=== PATIENT | female | born 1950 | race Caucasian/White ===

== ENCOUNTER 2017-12-11 17:44 | Emergency (ER) | payer MEDICARE, OTHER ==
[~2017-12-11] VITALS: Ht 160 cm; Wt 147.7 kg
[~2017-12-11 17:44] MED LIST: CITA-278 PO; DIPH-186 PO; GABA600T PO; HYDR1TAB PO; IMO2C PO; LISI30TA39 PO; MORP30TA60 PO; PROM25TA14 PO; RANI-327 PO
[2017-12-11 18:24] VITALS: BP 160/100
== END 2017-12-11 21:53 | disposition home or self-care (01) ==
LOC: ER 17:46
DX: K14.8 Other diseases of tongue (principal); R06.02 Shortness of breath; Z88.1 Allergy status to other antibiotic agents; Z88.8 Allergy status to other drugs, medicaments and biological substances; Z79.899 Other long term (current) drug therapy
CPT/HCPCS: 99284

== ENCOUNTER 2021-11-20 08:03 | Day surgery (SDC) | payer MEDICARE, SELFPAY ==
[2021-11-15 15:35] LABS: BASOPHILS # (AUTO) 0.1 X10'3 (0-0.2); BASOPHILS % (AUTO) 1.1 % (0-1); EOSINOPHILS # (AUTO) 0.1 X10'3 (0-0.9); EOSINOPHILS % (AUTO) 1.3 % (0-6); LYMPHOCYTES % (AUTO) 31.2 % (21-51); MEAN CORPUSCULAR HGB CONC 32.4 g/dL (33.0-36.5); MEAN CORPUSCULAR VOLUME 83.4 FL (78-98); MEAN PLATELET VOLUME 7.1 FL (7.4-10.4); MONOCYTES # (AUTO) 0.6 X10'3 (0-0.9); MONOCYTES % (AUTO) 9.8 % (2-12); NEUTROPHILS # (AUTO) 3.7 X10'3 (1.8-7.7); NEUTROPHILS % (AUTO) 56.6 % (42-75); PRE OP HEMATOCRIT 37.7 % (35.0-45.0); PRE OP HEMOGLOBIN 12.2 g/dL (12.0-16.0); PRE OP PLATELET COUNT 288 X10'3 (140-440); RED BLOOD COUNT 4.52 X10'6 (4.20-5.60); RED CELL DISTRIBUTION WIDTH 15.5 % (11.5-14.5)
[2021-11-15 15:39] LABS: PRE OP PROTIME 10.1 SECONDS (9.0-12.0)
[2021-11-15 16:08] LABS: ALBUMIN 3.4 G/DL (3.4-5.0); ALBUMIN/GLOBULIN RATIO 0.9 (1.1-1.5); ALKALINE PHOSPHATASE 128 IU/L (46-116); BLOOD UREA NITROGEN 25 MG/DL (7-18); BUN/CREATININE RATIO 24.8 (6.6-38.0); CALCIUM 8.9 MG/DL (8.5-10.1); CHLORIDE 102 MMOL/L (99-107); CREATININE 1.01 MG/DL (0.40-0.90); PRE OP ALT 21 U/L (30-65); PRE OP ANION GAP 10 (8-16); PRE OP AST 11 U/L (10-37); PRE OP BILIRUB, TOTAL 0.4 MG/DL (0.0-1.0); PRE OP GLUCOSE 119 MG/DL (70-104); PRE OP POTASSIUM 4.7 MMOL/L (3.4-5.1); PRE OP SODIUM 140 MMOL/L (135-145); TOTAL CARBON DIOXIDE 27.6 MMOL/L (24-32); TOTAL PROTEIN 7.1 G/DL (6.4-8.2); eGFR 54 ML/MIN
[~2021-11-20] VITALS: Ht 162.6 cm; Wt 147.4 kg
[2021-11-20] VITALS (14 sets, daily range): BP systolic 120–172; BP diastolic 53–150
[~2021-11-20 08:03] MED LIST changes: +ACET-1025 PO; +ATOR20TA66 PO; -CITA-278 PO; +CITA20TA28 PO; +CYCL-394 PO; -DIPH-186 PO; +DIPH25CA83 PO; +DULO60CA65 PO; +FLUT16SP20 NAS; -GABA600T PO; +GUAI400T68 PO; +HYDR-4353 PO; +HYDR12.55 PO; -HYDR1TAB PO; +HYDR50TA65 PO; -IMO2C PO; +INDO50CA96 PO; +LIDOcaine 1% W/epiNEPHrine 1:100,000 20ml vial ONE; -LISI30TA39 PO; +LISI40TA13 PO; -MORP30TA60 PO; +OXYB5TAB16 PO; +PANT40TA54 PO; -PROM25TA14 PO; -RANI-327 PO; +cocaine 4% topical solution 4ml bottle ONE; +diazepam 5mg tablet PO ONE; +famotidine 20mg tablet PO ONE; +oxymetazoline 15 ML nasal spray NS ONE; +ringers solution, lacted 1,000 ML IV SCH
[2021-11-20] MEDS: oxymetazoline 15 ML nasal spray NS PRN ×2 (09:49→09:53)
[2021-11-20] MEDS ORDERED: LIDOcaine 2% 5ml jelly ONE (10:54)
[2021-11-20] MEDS ORDERED: sevoflurane 250ml liquid IH ONE (10:58)
[2021-11-20] MEDS ORDERED: acetaminophen 1,000mg/100ml IV 100 ML IV PRN (11:00)
[2021-11-20] MEDS ORDERED: hydrALAZINE 20mg/ml inj. IV PRN (11:00)
[2021-11-20] MEDS ORDERED: meperidine/PF 25mg/ml syringe IV PRN (11:00)
[2021-11-20] MEDS ORDERED: proCHLORperazine 10 MG/2 ml inj IV PRN (11:00)
[2021-11-20] MEDS ORDERED: labetalol 20mg/4ml (5mg/ml) syringe IV PRN (11:00)
[2021-11-20] MEDS ORDERED: morphine 4 MG/ML inj SYRINge IV PRN (11:00)
[2021-11-20] MEDS ORDERED: HYDROmorphone/PF 0.2 MG/ML SYRINGE IV PRN ×2 (11:00)
[2021-11-20] MEDS ORDERED: ringers solution, lacted 1,000 ML IV SCH (11:00)
[2021-11-20] MEDS ORDERED: morphine 2 MG/ML inj. syringe IV PRN (11:00)
[2021-11-20] MEDS ORDERED: ondansetron/PF 4mg/2ml inj IV PRN (11:00)
[2021-11-20] MEDS ORDERED: fentaNYL/PF 50MCG/1 ML 2ML syringe ONE (11:06)
[2021-11-20] MEDS ORDERED: propofol inj 20 ML IV ONE (11:26)
[2021-11-20] MEDS ORDERED: LIDOcaine 1%/PF 5ML 10 MG/ML VIAL ONE ×2 (11:26)
[2021-11-20] MEDS ORDERED: midazolam 1 mg/ML 2ml injection ONE (11:26)
[2021-11-20] MEDS ORDERED: ondansetron/PF 4mg/2ml inj ONE (11:26)
[2021-11-20] MEDS ORDERED: dexamethasone sod phosphate 4mg/ml inj. ONE (11:26)
[2021-11-20] MEDS ORDERED: ePHEDrine 50MG/ML INJ. ONE (11:30)
--- NOTE | 2021-11-20 12:05 | NUR ---
PT ARRIVED TO [facility]IA [facility], ACCOMPANIED BY DR ADKINS-ANESTHESIA REPORT GIVEN, PT WAKING UP,VSS, DENIES PAIN, SCDS ON, NO COTTONOIDS PRESENT, PIV 20G-RIGHT HAND.
[2021-11-20] MEDS ORDERED: salt irrigation nasal spray 45 ML SPRAY NS PRN (12:25)
[2021-11-20] MEDS: mupirocin 2% ointment 22GM ONE ×2 (12:55→12:56)
[2021-11-20] MEDS ORDERED: HYDROcodone/acetaminophen 5mg/325mg tablet PO ONE (13:00)
--- NOTE | 2021-11-20 14:20 | NUR ---
PT UP AND DRESSED, SITTING IN CHAIR, VSS, PAIN CONTROLLED AFTER MORPHINE AND NORCO GIVEN, BLEEDING MINIMAL, EXPLAINED AND DEMONSTRATED HOME CARE, GIVEN ALL NEEDED SUPPLIES FOR HOME, PT HAS FRESH MUSTACHE DRESSING, PIV D/CD-CANULA INTACT, D/C INSTRUCTIONS GIVEN, PT TAKEN WITH ALL BELONGINGS VIA W/C TO VEHICLE FOR TRANSPORT HOME.
== END 2021-11-20 14:20 | disposition home or self-care (01) ==
LOC: PAS 08:03
PROVIDERS: ATTEND Otolaryngology
DX: J32.8 Other chronic sinusitis (principal); J33.8 Other polyp of sinus; I10 Essential (primary) hypertension; K21.9 Gastro-esophageal reflux disease without esophagitis; F41.9 Anxiety disorder, unspecified; F32.A Depression, unspecified; M19.90 Unspecified osteoarthritis, unspecified site; G89.29 Other chronic pain; E66.9 Obesity, unspecified; Z86.718 Personal history of other venous thrombosis and embolism; Z20.822 Contact with and (suspected) exposure to COVID-19; Z79.899 Other long term (current) drug therapy; Z79.01 Long term (current) use of anticoagulants; Z98.890 Other specified postprocedural states; Z88.1 Allergy status to other antibiotic agents; Z88.0 Allergy status to penicillin; Z88.2 Allergy status to sulfonamides; Z88.8 Allergy status to other drugs, medicaments and biological substances; Z72.89 Other problems related to lifestyle
CPT/HCPCS: 31254; 31256; 36415; 61782; 80053; 82948; 85025; 85576; 85610; 85730; 87635; 93005; A6402; C9250; C9803; J1100; J2250; J2270; J2405; J2704; J3010; J3490; J7030; J7040; J7120; Z7506; Z7508; Z7512; 88304; 88311; A4618; A6449; A7000

== ENCOUNTER 2024-07-26 09:56 | Emergency (ER) | payer MEDICARE, SELFPAY ==
[~2024-07-26] VITALS: Ht 160 cm; Wt 133.0 kg
[~2024-07-26 09:56] MED LIST changes: -FLUT16SP20 NAS; +FLUT16SP35 NAS; -GUAI400T68 PO; +GUAI400T99 PO; -LIDOcaine 1% W/epiNEPHrine 1:100,000 20ml vial ONE; -OXYB5TAB16 PO; +OXYB5TAB21 PO; -cocaine 4% topical solution 4ml bottle ONE; -diazepam 5mg tablet PO ONE; -famotidine 20mg tablet PO ONE; -oxymetazoline 15 ML nasal spray NS ONE; -ringers solution, lacted 1,000 ML IV SCH
[2024-07-26 11:08] LABS: BASOPHILS # (AUTO) 0.1 X10'3 (0-0.2); BASOPHILS % (AUTO) 1.2 % (0-1); EOSINOPHILS # (AUTO) 0.2 X10'3 (0-0.9); EOSINOPHILS % (AUTO) 1.7 % (0-6); HEMATOCRIT 38.7 % (35.0-45.0); HEMOGLOBIN 12.5 g/dl (12.0-16.0); LYMPHOCYTES # (AUTO) 2.5 X10'3 (1.1-4.8); LYMPHOCYTES % (AUTO) 22.4 % (21-51); MEAN CORPUSCULAR HEMOGLOBIN 29.9 PG (27.0-31.0); MEAN CORPUSCULAR HGB CONC 32.2 g/dL (33.0-36.5); MEAN CORPUSCULAR VOLUME 92.9 FL (78-98); MEAN PLATELET VOLUME 6.8 FL (7.4-10.4); NEUTROPHILS # (AUTO) 7.2 X10'3 (1.8-7.7); NEUTROPHILS % (AUTO) 65.7 % (42-75); PLATELET COUNT 326 X10'3 (140-440); RED BLOOD COUNT 4.17 X10'6 (4.20-5.60); RED CELL DISTRIBUTION WIDTH 19.4 % (11.5-14.5)
[2024-07-26 11:23] LABS: ALANINE AMINOTRANSFERASE 19 U/L (12-78); ALBUMIN 3.4 G/DL (3.4-5.0); ALBUMIN/GLOBULIN RATIO 0.9 (1.1-1.5); ALKALINE PHOSPHATASE 107 IU/L (46-116); ANION GAP 15 (8-16); ASPARTATE AMINO TRANSFERASE 9 U/L (10-37); BILIRUBIN,TOTAL 0.2 MG/DL (0.1-1.0); BLOOD UREA NITROGEN 31 MG/DL (7-18); BUN/CREATININE RATIO 23.3 (10.0-20.0); CALCIUM 9.2 MG/DL (8.5-10.1); CHLORIDE 109 MMOL/L (99-107); CREATININE 1.33 MG/DL (0.40-0.90); GLUCOSE 108 MG/DL (70-104); POTASSIUM 4.7 MMOL/L (3.5-5.1); SODIUM 142 MMOL/L (135-145); TOTAL CARBON DIOXIDE 18.5 MMOL/L (24-32); TOTAL PROTEIN 7.1 G/DL (6.4-8.2); eCRCL 31 ML/MIN; eGFR 39 ML/MIN
[2024-07-26 11:38] LABS: ANISOCYTOSIS 1+; ELLIPTOCYTES FEW; PLATELET ESTIMATE NORMAL; TEAR DROP CELLS FEW
[2024-07-26] MEDS: normal saline 1000ML IV soln IVB ONE (12:14)
[2024-07-26] MEDS ORDERED: LEVO250T74 PO (14:19)
[2024-07-26 14:41] VITALS: BP 136/82; PULSE 76; RESP 14; TEMP 97.8; O2SAT 98
== END 2024-07-26 14:44 | disposition home or self-care (01) ==
LOC: ER 09:57
DX: E86.0 Dehydration (principal); S09.90XA Unspecified injury of head, initial encounter; R51.9 Headache, unspecified; J32.9 Chronic sinusitis, unspecified; M25.512 Pain in left shoulder; Z88.0 Allergy status to penicillin; Z88.2 Allergy status to sulfonamides; Z88.5 Allergy status to narcotic agent; Z88.1 Allergy status to other antibiotic agents; Z91.041 Radiographic dye allergy status; Z88.8 Allergy status to other drugs, medicaments and biological substances
CPT/HCPCS: 36415; 70450; 73030; 80053; 83605; 84145; 84484; 85008; 85025; 93005; 96360; 96361; 99285; J7030

== ENCOUNTER 2024-07-30 15:04 | Emergency (ER) | payer MEDICARE ==
[~2024-07-30] VITALS: Ht 162.6 cm; Wt 133.0 kg
[~2024-07-30 15:04] MED LIST changes: +LEVO250T74 PO
[2024-07-30 16:07] VITALS: TEMP 97.8
[2024-07-30 16:22] LABS: BASOPHILS # (AUTO) 0.2 X10'3 (0-0.2); BASOPHILS % (AUTO) 1.8 % (0-1); EOSINOPHILS # (AUTO) 0.2 X10'3 (0-0.9); EOSINOPHILS % (AUTO) 1.9 % (0-6); HEMATOCRIT 40.8 % (35.0-45.0); HEMOGLOBIN 13.5 g/dl (12.0-16.0); LYMPHOCYTES # (AUTO) 2.7 X10'3 (1.1-4.8); LYMPHOCYTES % (AUTO) 30.9 % (21-51); MEAN CORPUSCULAR HEMOGLOBIN 30.4 PG (27.0-31.0); MEAN CORPUSCULAR HGB CONC 33.2 g/dL (33.0-36.5); MEAN CORPUSCULAR VOLUME 91.5 FL (78-98); MEAN PLATELET VOLUME 7.6 FL (7.4-10.4); MONOCYTES # (AUTO) 0.7 X10'3 (0-0.9); MONOCYTES % (AUTO) 7.8 % (2-12); NEUTROPHILS # (AUTO) 5.1 X10'3 (1.8-7.7); NEUTROPHILS % (AUTO) 57.6 % (42-75); PLATELET COUNT 315 X10'3 (140-440); RED BLOOD COUNT 4.46 X10'6 (4.20-5.60); RED CELL DISTRIBUTION WIDTH 18.6 % (11.5-14.5); WHITE BLOOD COUNT 8.8 X10'3 (4.5-11.0)
[2024-07-30 16:46] LABS: ALANINE AMINOTRANSFERASE 18 U/L (12-78); ALBUMIN 3.8 G/DL (3.4-5.0); ALKALINE PHOSPHATASE 115 IU/L (46-116); ANION GAP 11 (8-16); ASPARTATE AMINO TRANSFERASE 12 U/L (10-37); BILIRUBIN,TOTAL 0.4 MG/DL (0.1-1.0); BLOOD UREA NITROGEN 21 MG/DL (7-18); BUN/CREATININE RATIO 17.1 (10.0-20.0); CALCIUM 9.7 MG/DL (8.5-10.1); CHLORIDE 102 MMOL/L (99-107); CREATININE 1.23 MG/DL (0.40-0.90); GLUCOSE 116 MG/DL (70-104); POTASSIUM 5.4 MMOL/L (3.5-5.1); SODIUM 135 MMOL/L (135-145); TOTAL CARBON DIOXIDE 21.8 MMOL/L (24-32); TOTAL PROTEIN 7.6 G/DL (6.4-8.2); eCRCL 35 ML/MIN; eGFR 43 ML/MIN
[2024-07-30 16:56] LABS: ANISOCYTOSIS 2+; ELLIPTOCYTES 1+; PLATELET ESTIMATE NORMAL
[2024-07-30 18:26] VITALS: PULSE 110
[2024-07-30] MEDS: normal saline 1000ml 1,000 ML IV ONE (19:48)
[2024-07-30] MEDS: cloNIDine 0.1 mg tablet PO ONE (19:54)
[2024-07-30 20:06] LABS: BILIRUBIN,URINE NEGATIVE (Neg); CLARITY,URINE CLEAR (Clear); COLOR,URINE YELLOW (Yellow); GLUCOSE, URINE NEGATIVE (Neg); KETONES,URINE NEGATIVE (Neg); LEUKOCYTE ESTERASE ,URINE SMALL (Neg); NITRITES, URINE NEGATIVE (Neg); OCCULT BLOOD,URINE SMALL (Neg); PROTEIN,URINE NEGATIVE (Neg); UROBILINOGEN,URINE 0.2 E.U/dL (0.2-1.0)
[2024-07-30 20:13] LABS: UA COLLECTION TYPE CLN CATCH MIDSTREAM
[2024-07-30 20:15] LABS: BACTERIA,URINE 1+ /HPF (Neg); SQUAMOUS EPITHELIAL CELL,UR FEW /LPF (FEW)
[2024-07-30] MEDS ORDERED: NITR100C6 PO (20:28)
[2024-07-30] MEDS ORDERED: nitrofuran monohydrate/nitrofuran macrocrysal 100 MG (MacroBID) capsule PO ONE (20:30)
[2024-07-30 20:54] VITALS: BP 140/81; RESP 18; O2SAT 99
== END 2024-07-30 21:05 | disposition home or self-care (01) ==
LOC: ER 15:05
DX: N39.0 Urinary tract infection, site not specified (principal); Z88.0 Allergy status to penicillin; Z88.1 Allergy status to other antibiotic agents; Z88.2 Allergy status to sulfonamides; Z88.5 Allergy status to narcotic agent; Z91.041 Radiographic dye allergy status; Z88.8 Allergy status to other drugs, medicaments and biological substances; Z79.2 Long term (current) use of antibiotics
CPT/HCPCS: 36415; 80053; 81001; 83605; 84484; 85008; 85025; 87040; 96360; 99284; J7030